=== PATIENT | male | born 1990 | race Caucasian/White ===

== ENCOUNTER 2022-05-24 08:36 | Emergency (ER) | payer BC, MEDICAID ==
[~2022-05-24] VITALS: Ht 185.4 cm; Wt 90.9 kg
[2022-05-24] MEDS ORDERED: PERTUSS(ACELL),DIPH,TET VAC/PF 0.5 ML SYRINGE IM. ONE (09:30)
[2022-05-24] MEDS ORDERED: LIDOCAINE 1% 10 ML VIAL SQ ONE (09:30)
[2022-05-24] MEDS ORDERED: BACITRACIN 0.9 GM PACKET OINTMENT TP ONE (12:00)
[2022-05-24] MEDS ORDERED: CEPHALEXIN MONOHYDRATE 500 MG CAPSULE PO ONE (12:00)
[2022-05-24] MEDS ORDERED: CEPH-558 PO (12:21)
[2022-05-24 12:43] VITALS: BP 110/67
== END 2022-05-24 12:53 | disposition home or self-care (01) ==
LOC: EMS 08:40
DX: S60.412A Abrasion of right middle finger, initial encounter (principal); S61.216A Laceration without foreign body of right little finger without damage to nail, initial encounter; M84.40XA Pathological fracture, unspecified site, initial encounter for fracture; F41.9 Anxiety disorder, unspecified; J45.909 Unspecified asthma, uncomplicated; Z98.890 Other specified postprocedural states; W25.XXXA Contact with sharp glass, initial encounter; Y93.89 Activity, other specified; Y92.89 Other specified places as the place of occurrence of the external cause; Y99.8 Other external cause status
CPT/HCPCS: 99283; 73130; 90715; 90471; 12004; J3490